=== PATIENT | male | born 1990 | race Caucasian/White ===

== ENCOUNTER 2021-11-29 15:40 | Outpatient (CLI) | payer OTHER ==
[~2021-11-29] VITALS: Ht 180.3 cm; Wt 83.5 kg
[~2021-11-29 15:40] MED LIST: DIVA-80 PO
[2021-11-29 16:14] VITALS: BP 106/67
[2021-11-29 16:22] VITALS: BP 106/67
[2021-11-29] MEDS ORDERED: OLANZapine 5 MG TABLET PO ONE (16:33)
[2021-11-29] MEDS ORDERED: DIVALPROEX SODIUM 250 MG DR TABLET PO ONE (16:35)
[2021-11-29] MEDS ORDERED: DIVA-112 PO (19:05)
[2021-11-29] MEDS ORDERED: OLAN5TAB52 PO (19:05)
[2021-11-30] MEDS ORDERED: OLANZapine 5 MG TABLET PO SCH (09:00)
[2021-11-30] MEDS ORDERED: DIVALPROEX SODIUM 250 MG DR TABLET PO SCH (09:00)
== END 2021-11-29 17:10 | disposition home or self-care (01) ==
LOC: CSU 15:40
PROVIDERS: ATTEND Psychiatry & Neurology Psychiatry
DX: F41.9 Anxiety disorder, unspecified (principal); F29 Unspecified psychosis not due to a substance or known physiological condition; F39 Unspecified mood [affective] disorder; F20.0 Paranoid schizophrenia; F50.9 Eating disorder, unspecified; Z87.891 Personal history of nicotine dependence
CPT/HCPCS: 90792; Z7610